=== PATIENT | female | born 1960 | race Hispanic/Latino ===

== ENCOUNTER 2018-07-27 02:34 | Emergency (ER) | payer OTHER ==
[~2018-07-27] VITALS: Ht 152.4 cm; Wt 72.6 kg
--- OUTSIDE RECORDS SUMMARY | 2018-07-27 02:36 | XMS REPORT | Summary of Care ---
Author Author [facility] Organization [facility] Address Unknown Phone Unavailable Encounter MERVAT Prieto(FIN) [id number] Date(s): 06/17/17 - 06/17/17 [facility] [address], [address] [place] [address]- [phone] Discharge Disposition: Home or Self Care Attending Physician: Brett Taylor MD Vital Signs Most recent to 1 oldest [Reference Range]: Height 149.86 cm (06/17/17 9:03 AM) Temperature Oral 97.9 DegF [96.4-99.1 DegF] (06/17/17 9:03 AM) Blood Pressure 120/82 mmHg [90-140/60-90 mmHg] (06/17/17 9:03 AM) Respiratory Rate 14 BRMIN [14-20 BRMIN] (06/17/17 9:03 AM) Peripheral Pulse 60 bpm Rate [60-100 bpm] (06/17/17 9:03 AM) Weight 72.898 kg (06/17/17 9:03 AM) Body Mass Index 32.46 m2 (06/17/17 9:03 AM) Problem List Condition Effective Dates Status Health Status Informant Left cervical Active radiculopathy(Confir med) History of Active hysterectomy(Confirm ed) History of sleeve Active gastrectomy(Confirme d) Hypertension(Confirm Active ed) Hypothyroidism(Confi Active rmed) Migraine(Confirmed) Active Obesity(Confirmed) Active RUI on Active CPAP(Confirmed) Primary Active osteoarthritis of knees, bilateral(Confirmed) Allergies, Adverse Reactions, Alerts Substance Reaction Severity Status NKDA Active Medications ibuprofen 600 mg oral tablet 600 mg=1 tab, PO, Q6H, PRN Pain, take with food, # 40 tab, 0 Refill(s), [facility] : [id number] Start Date: 06/17/17 Stop Date: 06/17/18 Status: Ordered levothyroxine 100 mcg (0.1 mg) oral tablet 100 microgram=1 tab, PO, Daily, # 90 tab, 1 Refill(s), [id number] Start Date: 06/17/17 Status: Ordered propranolol 60 mg oral capsule, extended release 60 mg=1 cap, PO, Daily, # 90 cap, 1 Refill(s), [id number] Start Date: 06/17/17 Status: Ordered tizanidine 4 mg oral tablet 4 mg=1 tab, PO, Bedtime, # 20 tab, 0 Refill(s), [id number] Start Date: 06/17/17 Status: Ordered Results No data available for this section Immunizations Given and Recorded Vaccine Date Status Refusal Reason Hx influenza vaccine-unspecified1 12/29/16 Recorded Hx influenza vaccine-unspecified2 01/05/16 Recorded zoster vaccine live 06/20/12 Recorded Hx diphth/pertussis, acellular/tetanus 11/21/09 Recorded 1Location History: work 2Location History: work Procedures Procedure Date Related Diagnosis Body Site Status Colonoscopy1 03/03/12 Completed Cholecystectomy Completed Hysterectomy Completed Primary repair of umbilical hernia Completed Sleeve resection of stomach Completed 1at [facility] Social History Social History Type Response Substance Abuse Use: None. Exercise Exercise duration: 0. Employment/School Status: Employed. 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 Alcohol Current, Type Beer.1 Smoking Status Never smoker; Exposure to Tobacco Smoke None; Cigarette Smoking Last 365 Days No; Reg Smoking Cessation Counseling No entered on: 06/17/17 1socially Assessment and Plan No data available for this section
--- OUTSIDE RECORDS SUMMARY | 2018-07-27 02:36 | XMS REPORT | Summary of Care ---
Author Author [facility] Organization [facility] Address Unknown Phone Unavailable Encounter MERVAT Prieto(FIN) [id number] Date(s): 05/04/17 - 05/04/17 [facility] [address], [address] [place] [address]- [phone] Discharge Disposition: Home or Self Care Attending Physician: Brett Taylor MD Vital Signs Most recent to 1 oldest [Reference Range]: Height 149.86 cm (05/04/17 4:56 PM) Temperature Oral 97.9 DegF [96.4-99.1 DegF] (05/04/17 4:56 PM) Blood Pressure 126/86 mmHg [90-140/60-90 mmHg] (05/04/17 4:56 PM) Respiratory Rate 14 BRMIN [14-20 BRMIN] (05/04/17 4:56 PM) Peripheral Pulse 70 bpm Rate [60-100 bpm] (05/04/17 4:56 PM) Weight 73.239 kg (05/04/17 4:56 PM) Body Mass Index 32.61 m2 (05/04/17 4:56 PM) Problem List Condition Effective Dates Status Health Status Informant Left cervical Active radiculopathy(Confir med) History of Active hysterectomy(Confirm ed) History of sleeve Active gastrectomy(Confirme d) Hypertension(Confirm Active ed) Hypothyroidism(Confi Active rmed) Migraine(Confirmed) Active Obesity(Confirmed) Active RUI on Active CPAP(Confirmed) Primary Active osteoarthritis of knees, bilateral(Confirmed) Allergies, Adverse Reactions, Alerts Substance Reaction Severity Status NKDA Active Medications azithromycin 250 mg oral tablet See Instructions, Take 2 tablets by mouth the first day then 1 tablet by mouth d aily on days 2-5., X 5 day, # 6 tab, 0 Refill(s), [id number] Start Date: 05/04/17 Stop Date: 05/09/17 Status: Completed TamiFLU 75 mg oral capsule 75 mg=1 cap, PO, BID, # 10 cap, 0 Refill(s), Pharmacy: [facility] #[id number] Start Date: 05/04/17 Stop Date: 06/17/17 Status: Discontinued Results No data available for this section [...] duration: 0. Employment/School Status: Employed. 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 Alcohol Current, Type Beer.1 Smoking Status Never smoker; Exposure to Tobacco Smoke None; Cigarette Smoking Last 365 Days No; Reg Smoking Cessation Counseling No entered on: 06/17/17 1socially Assessment and Plan No data available for this section
--- OUTSIDE RECORDS SUMMARY | 2018-07-27 02:36 | XMS REPORT | Summary of Care ---
Author Author [facility] Organization [facility] Address Unknown Phone Unavailable Encounter MERVAT Prieto(FIN) [id number] Date(s): 06/17/17 - 06/17/17 [facility] [address], [address] [place] [address]- [phone] Discharge Disposition: Home or Self Care Attending [...] Daily, # 90 tab, 1 Refill(s), [id number] Start Date: 06/17/17 Status: Ordered propranolol 60 mg oral capsule, extended release 60 mg=1 cap, PO, Daily, # 90 cap, 1 Refill(s), [id number] Start Date: 06/17/17 Status: Ordered tizanidine 4 mg oral tablet 4 mg=1 tab, PO, Bedtime, # 20 tab, 0 Refill(s), [id number] Start Date: 06/17/17 Status: Ordered Results [...] duration: 0. Employment/School Status: Employed. 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 Alcohol Current, Type Beer.1 Smoking Status Never smoker; Exposure to Tobacco Smoke None; Cigarette Smoking Last 365 Days No; Reg Smoking Cessation Counseling No entered on: 06/17/17 1socially Assessment and Plan No data available for this section
--- OUTSIDE RECORDS SUMMARY | 2018-07-27 02:36 | XMS REPORT | Continuity of Care Document ---
Author Author [facility] Address Unknown Phone Unavailable Problems Problem Status Onset Date Classification Date Reported Comments Source R07.9 - "CHEST PAIN, UNSPECIFIED" Active 06/22/2016 [facility] [place] Left cervical radiculopathy Active Problem 05/22/2018 [facility] [place] History of sleeve gastrectomy Active Problem 05/22/2018 [facility] [place] Hypertension Active Problem 05/22/2018 [facility] [place] Hypothyroidism Active Problem 05/22/2018 [facility] [place] Migraine Active Problem 05/22/2018 [facility] [place] Obesity Active Problem 05/22/2018 [facility] [place] RUI on CPAP Active Problem 05/22/2018 [facility] [place] Primary osteoarthritis of knees, bilateral Active Problem 05/22/2018 [facility] [place] History of hysterectomy Active Problem 05/22/2018 [facility] [place] Medications Medication Details Route Status Patient Instructions Ordering Provider Order Date Source tizanidine 4 mg oral tablet 4 mg=1 tab, PO, Bedtime, # 20 tab, 0 Refill(s), Pharmacy: [facility]acy #[id number] Active 06/17/2017 [facility] propranolol 60 mg oral capsule, extended release 60 mg=1 cap, PO, Daily, # 90 cap, 1 Refill(s), Pharmacy: [facility]/pharmacy #[id number] Active 06/17/2017 [facility] levothyroxine 100 mcg (0.1 mg) oral tablet 100 microgram=1 tab, PO, Daily, # 90 tab, 1 Refill(s), Pharmacy: [facility]/pharmacy #[id number] Active 06/17/2017 [facility] ibuprofen 600 mg oral tablet 600 mg=1 tab, PO, Q6H, PRN Pain, take with food, # 40 tab, 0 Refill(s), Pharmacy: [facility]/pharmacy #[id number] Active 06/17/2017 [facility] azithromycin 250 mg oral tablet See Instructions, Take 2 tablets by mouth the first day then 1 tablet by mouth daily on days 2-5., X 5 day, # 6 tab, 0 Refill(s), [id number] No Longer Active 05/04/2017 [facility] Oseltamivir 75 MG Oral Capsule [Tamiflu] 75 mg=1 cap, PO, BID, # 10 cap, 0 Refill(s), [id number] No Longer Active 05/04/2017 [facility] ciprofloxacin 500 mg oral tablet 500 mg=1 tab, PO, Q12H, X 7 day, # 14 tab, 0 Refill(s), [id number] Active 03/18/2017 [facility] Metronidazole 500 MG Oral Tablet 500 mg=1 tab, PO, TID, X 7 day, # 21 tab, 0 Refill(s), [id number] Active 03/18/2017 [facility] Allergies, Adverse Reactions, Alerts Substance Category Reaction Severity Reaction type Status Date Reported Comments Source Immunizations Immunization Date Given Site Status Last Updated Comments Source Hx influenza vaccine-unspecified 12/16/2017 completed [facility], [facility] Hx influenza vaccine-unspecified<sup>1</sup> 12/29/2016 completed [facility] Location History: work [facility], [facility] Hx influenza vaccine-unspecified<sup>1</sup> 01/05/2016 completed [facility] [place] Hx influenza vaccine-unspecified<sup>2</sup> 01/05/2016 completed [facility] Location History: work [facility], [facility] [place] zoster vaccine live 06/20/2012 completed [facility], [facility] [place] Hx diphth/pertussis, acellular/tetanus 11/21/2009 completed [facility], [facility] [place] Results Order Name Results Value Reference Range Date Interpretation Comments Source Breast Mammo Scrn [facility]JANA incl CAD MA Breast Mammo Scrn [facility]JANA incl CAD MA BILATERAL DIGITAL SCREENING MAMMOGRAM WITH CAD: 05/20/2018 CLINICAL: /Z12.31 Encounter For Screening Mammogram For Malignant Neoplasm Of Breast. Current study was evaluated with a Computer Aided Detection (CAD) system. COMPARISON:Comparison is made to exams dated: 07/16/2016 mammogram - [facility], 05/21/2014 mammogram, 03/12/2011 mammogram, and 04/14/2004 mammogram - [facility]. TECHNIQUE: Mammographic views were obtained using digital acquisition. Current study was also evaluated with a Computer Aided Detection (CAD) system. FINDINGS: There are scattered fibroglandular densities in both breasts. There are benign appearing calcifications in both breasts. No significant masses, calcifications, or other findings are seen in either breast. There has been no significant interval change. IMPRESSION: BENIGN RECOMMENDATION:There is no mammographic evidence of malignancy. A 1 year screening mammogram is recommended.(05/21/2019) This exam was interpreted at [id number] for JUAN ANTONIO Baldwin 15. Professional services are provided by the [facility] of Diagnostic Imaging. Garo Navarro M.D. cm/penrad:05/22/2018 08:23:28 Strategic Buyer(s): Sheri Enriquez [facility] letter sent: BI-RADS 1/2 Mammogram BI-RADS: 2 Benign 05/20/2018 - - Read by: Trace Ruiz MD Dictated Date/time: 05/22/18 08:23 Electronically Signed by: Trace Ruiz MD 05/22/18 08:23 FINAL REPORT [facility] Breast Mammo Scrn SANJANA incl CAD MA Breast Mammo Scrn SANJANA incl CAD MA - BREAST MAMMO SCRN [facility] INCL CAD MA BILATERAL DIGITAL SCREENING MAMMOGRAM WITH CAD: 07/16/2016 CLINICAL: Z12.31 Encounter For Screening Mammogram For Malignant Neoplasm Of Breast. Current study was evaluated with a Computer Aided Detection (CAD) system. Comparison is made to exams dated: 05/21/2014 mammogram, 03/12/2011 mammogram and 04/14/2004 mammogram - [facility]. There are scattered fibroglandular densities in both breasts. Stable benign appearing asymmetries are seen in both breasts. There are benign appearing calcifications in both breasts. No significant masses, calcifications, or other findings are seen in either breast. There has been no significant interval change. IMPRESSION: BENIGN There is no mammographic evidence of malignancy. A 1 year screening mammogram is recommended. Professional services are provided by the [facility]. Omid Lezama M.D. rsl/penfanny:07/28/2016 08:45:30 Strategic Buyer: Elis GALARZA)([place]eg[place]), [facility] This exam was dictated and interpreted by [id number] for CHUYITA [facility]. letter sent: Bilateral Benign Mammogram BI-RADS: 2 Benign 07/16/2016 - - Read by: Omid Lezama MD Dictated Date/time: 07/28/16 08:45 Electronically Signed by: Omid Lezama MD 07/28/16 08:45 FINAL REPORT [facility] Chest 2 views DX Chest 2 views DX EXAM: Chest 2 views DX HISTORY: chest pain r07.9 COMPARISON: None The heart size is normal and the lungs are clear. There is no pleural effusion or pneumothorax. Mild discogenic degenerative changes are noted. IMPRESSION: No acute abnormality. 06/22/2016 - - Read by: Johnnie Ortiz MD Dictated Date/time: 06/22/16 14:06 Electronically Signed by: Johnnie Ortiz MD 06/22/16 14:06 FINAL REPORT [facility] Vital Signs Vital Sign Value Date Comments Source BMI Calculated 34.1 10/18/2017 [facility] Weight 76.591 10/18/2017 [facility] Height 149.86 cm 10/18/2017 [facility] Temperature Oral (F) 97.6 F 10/18/2017 [facility] Respitory Rate 14 10/18/2017 [facility] Heart Rate 57 10/18/2017 [facility] Systolic (mm Hg) 129 10/18/2017 [facility] Diastolic (mm Hg) 83 10/18/2017 [facility] BMI Calculated 32.46 06/17/2017 [facility] Weight 72.898 06/17/2017 [facility] Respitory Rate 14 06/17/2017 [facility] Heart Rate 60 06/17/2017 [facility] Temperature Oral (F) 97.9 F 06/17/2017 [facility] Height 149.86 cm 06/17/2017 [facility] Systolic (mm Hg) 120 06/17/2017 [facility] Diastolic (mm Hg) 82 06/17/2017 [facility] BMI Calculated 32.61 05/04/2017 [facility] Weight 73.239 05/04/2017 [facility] Height 149.86 cm 05/04/2017 [facility] Temperature Oral (F) 97.9 F 05/04/2017 [facility] Respitory Rate 14 05/04/2017 [facility] Heart Rate 70 05/04/2017 [facility] Systolic (mm Hg) 126 05/04/2017 [facility] Diastolic (mm Hg) 86 05/04/2017 [facility] BMI Calculated 32.86 03/18/2017 [facility] Weight 73.807 03/18/2017 [facility] Systolic (mm Hg) 123 03/18/2017 [facility] Diastolic (mm Hg) 83 03/18/2017 [facility] Heart Rate 75 03/18/2017 [facility] Respitory Rate 14 03/18/2017 [facility] Temperature Oral (F) 97.8 F 03/18/2017 [facility] Height 149.86 cm 03/18/2017 [facility] Encounters Location Location Details Encounter Type Encounter Number Reason For Visit Attending Provider ADM Date DC Date Status Source Outpatient [id number] BRETT TAYLOR 06/22/2016 Active [facility] [place] [facility] [id number] Brett Taylor 06/22/2016 06/23/2016 [facility] [place] [place] Out[facility] Di[facility] [id number] Brett Taylor 07/16/2016 07/17/2016 [facility] [place] Outpatient [id number] BRETT TAYLOR 07/22/2016 Active [facility] Outpatient [id number] BRETT TAYLOR 09/24/2016 Active [facility] Outpatient [id number] BRETT TAYLOR 11/17/2016 Active [facility] [id number] BRETT TAYLOR 01/24/2017 Active [facility] Outpatient [id number] BRETT TAYLOR 03/18/2017 Active [facility] Outpatient [id number] Brett Taylor 03/18/2017 03/19/2017 [facility] Outpatient [id number] BRETT TAYLOR 05/04/2017 Active [facility] Outpatient [id number] Brett Taylor 05/04/2017 05/05/2017 [facility] Outpatient [id number] BRETT TAYLOR 06/17/2017 Active [facility] [id number] Brett Taylor 06/17/2017 06/18/2017 [facility] Outpatient [id number] BRETT TAYLOR 10/18/2017 Active [facility] Outpatient [id number] Brett Taylor 10/18/2017 10/19/2017 [facility] Outpatient [id number] BRETT TAYLOR 04/17/2018 Active [facility] [place] Out[facility] Diag Services [id number] Brett Taylor 05/20/2018 05/21/2018 [facility] [place] Outpatient [id number] BRETT TAYLOR 10/16/2018 Active [facility] Procedures Procedure Code Date Perfomer Comments Source Colonoscopy<sup>1</sup> [id number] 03/03/2012 at [facility] Colonoscopy<sup>1</sup> [id number] 03/03/2012 at [facility] [place] Cholecystectomy [id number] [facility] Hysterectomy [id number] [facility] Primary repair of umbilical hernia [id number] [facility] Sleeve resection of stomach [id number] [facility] Cholecystectomy [id number] [facility] [place] Hysterectomy [id number] [facility] [place] Primary repair of umbilical hernia [id number] [facility] [place] Sleeve resection of stomach [id number] [facility] [place]
--- OUTSIDE RECORDS SUMMARY | 2018-07-27 02:36 | XMS REPORT | Summary of Care ---
Author Author [facility] [place] Organization [facility] [place] Address Unknown Phone Unavailable Encounter HQ Lester_lillie(FIN) [id number] Date(s): 06/22/16 - 06/22/16 [facility] [place] [address] [address] [phone] Discharge Disposition: Home or Self Care Attending Physician: Brett Taylor MD Vital Signs No data available for this section Problem List Condition Effective Dates Status Health Status Informant Left cervical Active radiculopathy(Confir med) History of sleeve Active gastrectomy(Confirme d) Hypertension(Confirm Active ed) Hypothyroidism(Confi Active rmed) Migraine(Confirmed) Active Obesity(Confirmed) Active RUI on Active CPAP(Confirmed) Primary Active osteoarthritis of knees, bilateral(Confirmed) Allergies, Adverse Reactions, Alerts Substance Reaction Severity Status NKDA Active Medications No data available for this section Results No data available for this section Immunizations Given and Recorded Vaccine Date Status Refusal Reason Hx diphth/pertussis, acellular/tetanus 11/21/09 Recorded Hx influenza vaccine-unspecified1 01/05/16 Recorded zoster vaccine live 06/20/12 Recorded 1Location History: work Procedures Procedure Date Related Diagnosis Body Site Cholecystectomy Hysterectomy Primary repair of umbilical hernia Sleeve resection of stomach Social History Social History Type Response Substance Abuse Use: None. Exercise Exercise duration: 0. Employment/School Status: Employed. 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 Alcohol Current, Type Beer.1 Smoking Status Never smoker; Exposure to Tobacco Smoke None; Cigarette Smoking Last 365 Days No; Reg Smoking Cessation Counseling No 1socially Assessment and Plan No data available for this section
--- OUTSIDE RECORDS SUMMARY | 2018-07-27 02:36 | XMS REPORT | Summary of Care ---
Author Author [facility] Address Unknown Phone Unavailable Encounter MERVAT Prieto(FIN) [id number] Date(s): 03/18/17 - 03/18/17 [facility] [address], [address] [place] [address]- [phone] Discharge Disposition: Home or Self Care Attending Physician: Brett Taylor MD Vital Signs Most recent to 1 oldest [Reference Range]: Height 149.86 cm (03/18/17 8:32 AM) Temperature Oral 97.8 DegF [96.4-99.1 DegF] (03/18/17 8:32 AM) Blood Pressure 123/83 mmHg [90-140/60-90 mmHg] (03/18/17 8:32 AM) Respiratory Rate 14 BRMIN [14-20 BRMIN] (03/18/17 8:32 AM) Peripheral Pulse 75 bpm Rate [60-100 bpm] (03/18/17 8:32 AM) Weight 73.807 kg (03/18/17 8:32 AM) Body Mass Index 32.86 m2 (03/18/17 8:32 AM) Problem List Condition Effective Dates Status Health Status Informant Left cervical Active radiculopathy(Confir med) History of Active hysterectomy(Confirm ed) History of sleeve Active gastrectomy(Confirme d) Hypertension(Confirm Active ed) Hypothyroidism(Confi Active rmed) Migraine(Confirmed) Active Obesity(Confirmed) Active RUI on Active CPAP(Confirmed) Primary Active osteoarthritis of knees, bilateral(Confirmed) Allergies, Adverse Reactions, Alerts Substance Reaction Severity Status NKDA Active Medications ciprofloxacin 500 mg oral tablet 500 mg=1 tab, PO, Q12H, X 7 day, # 14 tab, 0 Refill(s), [id number] Start Date: 03/18/17 Stop Date: 03/25/17 Status: Ordered metroNIDAZOLE 500 mg oral tablet 500 mg=1 tab, PO, TID, X 7 day, # 21 tab, 0 Refill(s), Pharmacy: [facility]/pharmacy #[id number] Start Date: 03/18/17 Stop Date: 03/25/17 Status: Ordered Results No data available for [...] duration: 0. Employment/School Status: Employed. 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 Alcohol Current, Type Beer.1 Smoking Status Never smoker; Exposure to Tobacco Smoke None; Cigarette Smoking Last 365 Days No; Reg Smoking Cessation Counseling No 1socially Assessment and Plan No data available for this section
--- OUTSIDE RECORDS SUMMARY | 2018-07-27 02:36 | XMS REPORT | Summary of Care ---
Author Author [facility] [place] Organization [facility] [place] Address Unknown Phone Unavailable Encounter HQ Conner(FIN) [id number] Date(s): 07/16/16 - 07/16/16 [facility] [place] [address] [address]- [phone] Discharge Disposition: Home or Self Care Attending [...] duration: 0. Employment/School Status: Employed. 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 Alcohol Current, Type Beer.1 Smoking Status Never smoker; Exposure to Tobacco Smoke None; Cigarette Smoking Last 365 Days No; Reg Smoking Cessation Counseling No 1socially Assessment and Plan No data available for this section
--- OUTSIDE RECORDS SUMMARY | 2018-07-27 02:37 | XMS REPORT | Summary of Care ---
Author Author [facility] [place] Organization [facility] [place] Address Unknown Phone Unavailable Encounter MERVAT Prieto(FIN) [id number] Date(s): 05/20/18 - 05/20/18 [facility] [place] [address] [place] [address] [phone] Discharge Disposition: Home or Self Care Attending Physician: Brett Taylor MD Referring Physician: Brett Taylor MD Vital Signs No [...] Vaccine Date Status Refusal Reason Hx influenza vaccine-unspecified 12/16/17 Recorded Hx influenza vaccine-unspecified1 12/29/16 Recorded Hx influenza [...] duration: 0. Employment/School Status: Employed. 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 Alcohol Current, Type Beer.1 Smoking Status Never smoker; Exposure to Tobacco Smoke None; Cigarette Smoking Last 365 Days No; Reg Smoking Cessation Counseling No entered on: 04/17/18 1socially Assessment and Plan No data available for this section
--- OUTSIDE RECORDS SUMMARY | 2018-07-27 02:37 | XMS REPORT | Summary of Care ---
Author Author [facility] Organization [facility] Address Unknown Phone Unavailable Encounter MERVAT Prieto(FIN) [id number] Date(s): 10/18/17 - 10/18/17 [facility] [address], [address] [place] [address]- [phone] Discharge Disposition: Home or Self Care Attending Physician: Brett Taylor MD Vital Signs Most recent to 1 oldest [Reference Range]: Height 149.86 cm (10/18/17 8:19 AM) Temperature Oral 97.6 DegF [96.4-99.1 DegF] (10/18/17 8:19 AM) Blood Pressure 129/83 mmHg [90-140/60-90 mmHg] (10/18/17 8:19 AM) Respiratory Rate 14 BRMIN [14-20 BRMIN] (10/18/17 8:19 AM) Peripheral Pulse 57 bpm Rate [60-100 bpm] *LOW* (10/18/17 8:19 AM) Weight 76.591 kg (10/18/17 8:19 AM) Body Mass Index 34.1 m2 (10/18/17 8:19 AM) Problem List Condition Effective Dates Status Health Status Informant Left cervical Active radiculopathy(Confir med) History of Active hysterectomy(Confirm ed) History of sleeve Active gastrectomy(Confirme d) Hypertension(Confirm Active ed) Hypothyroidism(Confi Active rmed) Migraine(Confirmed) Active Obesity(Confirmed) Active RUI on Active CPAP(Confirmed) Primary Active osteoarthritis of knees, bilateral(Confirmed) Allergies, Adverse Reactions, Alerts Substance Reaction Severity Status NKDA Active Medications No Known Medications Results No data available for this section [...] duration: 0. Employment/School Status: Employed. Work/School description: [employer]. Alcohol Current, Type Beer.1 Smoking Status Never smoker; Exposure to Tobacco Smoke None; Cigarette Smoking Last 365 Days No; Reg Smoking Cessation Counseling No entered on: 04/17/18 1socially Assessment and Plan No data available for this section
[2018-07-27] MEDS ORDERED: KETOROLAC TROMETHAMINE 60 MG/2 ML VIAL ONE (02:58)
[2018-07-27] MEDS ORDERED: DIAZEPAM 5 MG TAB ONE (02:59)
[2018-07-27] MEDS ORDERED: KETOROLAC TROMETHAMINE 60 MG/2 ML VIAL IM ONE (03:00)
[2018-07-27] MEDS ORDERED: DIAZEPAM 5 MG TAB PO ONE (03:00)
== END 2018-07-27 03:57 | disposition home or self-care (01) ==
LOC: ER 02:34
DX: M54.5 Low back pain (principal); S39.012A Strain of muscle, fascia and tendon of lower back, initial encounter; M47.896 Other spondylosis, lumbar region; M54.16 Radiculopathy, lumbar region; X50.1XXA Overexertion from prolonged static or awkward postures, initial encounter
CPT/HCPCS: 96372; 99282; J1885